=== PATIENT | male | born 1995 | race African-American/Black ===

== ENCOUNTER 2017-02-06 14:56 | Emergency (ER) | payer BC, OTHER ==
[~2017-02-06] VITALS: Ht 190.5 cm; Wt 86.2 kg
[2017-02-06] MEDS ORDERED: BACT800T5 PO (16:35)
[2017-02-06] MEDS ORDERED: LIDOCAINE 1% MDV 20ML VIAL As Ordered ONE (16:40)
[2017-02-06] MEDS ORDERED: AZITHROMYCIN 250 MG TAB PO ONE (16:45)
[2017-02-06] MEDS ORDERED: cefTRIAXone SOD 250 MG VIAL (J0696) IM ONE (16:45)
[2017-02-06 17:11] VITALS: BP 149/71
== END 2017-02-06 17:23 | disposition home or self-care (01) ==
LOC: M ED 15:41
DX: R30.0 Dysuria (principal); F90.9 Attention-deficit hyperactivity disorder, unspecified type; F17.200 Nicotine dependence, unspecified, uncomplicated
CPT/HCPCS: 81001; 87086; 87491; 87591; 96372; 99282; J0696

== ENCOUNTER 2018-11-29 22:25 | Emergency (ER) | payer OTHER, SELFPAY ==
[~2018-11-29] VITALS: Ht 190.5 cm; Wt 87.3 kg
[2018-11-29 22:25] VITALS: BP 144/68
[~2018-11-29 22:25] MED LIST: BACT800T5 PO
[2018-11-29] MEDS ORDERED: PRED20TA PO (23:50)
[2018-11-30] MEDS ORDERED: predniSONE 20 MG TAB PO ONE
== END 2018-11-30 00:07 | disposition home or self-care (01) ==
LOC: M ED 22:25
DX: R22.0 Localized swelling, mass and lump, head (principal); F90.9 Attention-deficit hyperactivity disorder, unspecified type

== ENCOUNTER 2018-12-18 18:42 | Emergency (ER) | payer MEDICAID, SELFPAY ==
[~2018-12-18] VITALS: Ht 190.5 cm; Wt 86.4 kg
[~2018-12-18 18:42] MED LIST changes: +PRED20TA PO
[2018-12-18] MEDS ORDERED: diphenhydrAMINE INJ 50MG/ML VIAL (J1200) IV STA (20:01)
[2018-12-18] MEDS ORDERED: METOCLOPRAMIDE INJ 10MG/2ML VIAL (J2765) IV ONE (20:15)
--- NOTE | 2018-12-18 20:25 | REPVR ---
EXAM: CT Head Without Contrast EXAM DATE/TIME: 12/18/2018 8:06 PM CLINICAL HISTORY: 23 years old, male; Pain; Headache; Headache not specified; Additional info: SCHNEIDER TECHNIQUE: Imaging protocol: Axial computed tomography images of the head/brain without contrast. Radiation optimization: All CT scans at this facility use at least one of these dose optimization techniques: automated exposure control; mA and/or kV adjustment per patient size (includes targeted exams where dose is matched to clinical indication); or iterative reconstruction. COMPARISON: No relevant prior studies available. FINDINGS: Brain: Normal. No hemorrhage. No significant white matter disease. No edema. Ventricles: Normal. No ventriculomegaly. Bones/joints: Unremarkable. No acute fracture. Sinuses: Visualized sinuses are unremarkable. No acute sinusitis. Mastoid air cells: Visualized mastoid air cells are unremarkable. No mastoid effusion. Soft tissues: Unremarkable. IMPRESSION: No acute intracranial abnormality. Electronically signed by: Jeramie Olivera On 12/18/2018 20:24:59 PM
[2018-12-18 20:37] LABS: HEMATOCRIT 50.6 % (42.0-52.0); HEMOGLOBIN 16.9 g/dl (13.5-17.5); MEAN CORPUSCULAR HEMOGLOBIN 29.2 pg (27.0-33.0); MEAN CORPUSCULAR HGB CONC 33.4 g/dl (32.0-36.5); MEAN CORPUSCULAR VOLUME 87.4 fl (80.0-96.0); PLATELET COUNT, AUTOMATED 240 10^3/uL (150-450); RED BLOOD COUNT 5.79 10^6/uL (4.30-6.10); WHITE BLOOD COUNT 4.9 10^3/uL (4.0-10.0)
[2018-12-18 21:03] LABS: BLOOD UREA NITROGEN 10 MG/DL (7-18); CALCIUM LEVEL 9.4 MG/DL (8.5-10.1); CARBON DIOXIDE LEVEL 31 MEQ/L (21-32); CHLORIDE LEVEL 104 MEQ/L (98-107); GLOMERULAR FILTRATION RATE > 60.0 (>60); GLUCOSE, FASTING 79 MG/DL (70-100); POTASSIUM SERUM 4.6 MEQ/L (3.5-5.1); SODIUM LEVEL 141 MEQ/L (136-145)
[2018-12-18] MEDS ORDERED: REGL10TA6 PO (21:09)
[2018-12-18 21:15] VITALS: BP 161/97
== END 2018-12-18 21:22 | disposition home or self-care (01) ==
LOC: M ED 18:42
DX: R51 Headache (principal); F90.9 Attention-deficit hyperactivity disorder, unspecified type; Z88.0 Allergy status to penicillin
CPT/HCPCS: 36415; 70450; 80048; 85027; 96374; 96375; 99284; J1200; J2765

== ENCOUNTER 2018-12-20 21:20 | Emergency (ER) | payer SELFPAY ==
[~2018-12-20] VITALS: Ht 190.5 cm; Wt 101.3 kg
[~2018-12-20 21:20] MED LIST changes: +REGL10TA6 PO
[2018-12-20] MEDS ORDERED: BUPIVACAINE/EPIN 0.5% 30 ML VIAL XX ONE (22:15)
--- NOTE | 2018-12-20 23:41 | REPVR ---
EXAM: CT Maxillofacial Without Contrast EXAM DATE/TIME: 12/20/2018 10:43 PM CLINICAL HISTORY: 23 years old, male; Pain; Jaw pain; Additional info: Mandible pain TECHNIQUE: Imaging protocol: Axial computed tomography images of the face without intravenous contrast. Coronal and sagittal reformatted images were created and reviewed. Radiation optimization: All CT scans at this facility use at least one of these dose optimization techniques: automated exposure control; mA and/or kV adjustment per patient size (includes targeted exams where dose is matched to clinical indication); or iterative reconstruction. COMPARISON: No relevant prior studies available. FINDINGS: Orbits: No acute intraorbital abnormality. Globes are unremarkable. Sinuses: Normal. No air-fluid levels. Bones/joints: Anterior and lateral subluxation of the left mandibular condyle with respect to the glenoid fossa in comparison to the right. Soft tissues: No significant facial soft tissue swelling. IMPRESSION: Anterior and lateral subluxation of the left mandibular condyle with respect to the glenoid fossa in comparison to the right. Electronically signed by: Jeramie Olivera On 12/20/2018 23:41:03 PM
[2018-12-21] MEDS ORDERED: MORPHINE 10 MG/ML 1ML VIAL (J2270) IM ONE (00:15)
[2018-12-21] MEDS ORDERED: PROPOFOL 1,000 MG/100 ML VIAL As Ordered ONE (00:44)
[2018-12-21] MEDS ORDERED: PROPOFOL 200 MG/20 ML VIAL IV ONE ×2 (00:51→00:53)
[2018-12-21 01:03] VITALS: O2SAT 100
[2018-12-21 01:50] VITALS: BP 182/87
--- NOTE | 2018-12-21 08:40 | REP ---
TMJ is series: Two views. History: Post reduction. CT imaging showed subluxation or dislocation of the left temporomandibular joint. Findings: Portably obtained lateral views are presented. The patient was apparently conscious according to the technologist and unable to participate in positioning. Right temporomandibular joint appears normally aligned. On the left there is improvement although some persistent diastases is seen. These views are less than optimal. Consider repeat CT scanning. Electronically Signed by Sage Hoskins MD 12/21/2018 08:31 A
== END 2018-12-21 01:59 | disposition home or self-care (01) ==
LOC: M ED 21:20
DX: S03.02XA Dislocation of jaw, left side, initial encounter (principal); X58.XXXA Exposure to other specified factors, initial encounter; Y92.9 Unspecified place or not applicable; Y93.9 Activity, unspecified; Y99.9 Unspecified external cause status; B15.9 Hepatitis A without hepatic coma; Z88.0 Allergy status to penicillin
CPT/HCPCS: 21480; 70330; 70486; 96374; 99152; 99153; 99285; J2270

== ENCOUNTER 2019-07-04 20:14 | Emergency (ER) | payer OTHER, SELFPAY ==
[~2019-07-04] VITALS: Ht 190.5 cm; Wt 103.5 kg
[2019-07-04 20:16] VITALS: BP 141/76
[2019-07-04] MEDS ORDERED: predniSONE 20 MG TAB PO ONE (21:45)
[2019-07-04] MEDS ORDERED: PRED20TA PO (21:47)
== END 2019-07-04 21:58 | disposition home or self-care (01) ==
LOC: M ED 20:14
DX: R21 Rash and other nonspecific skin eruption (principal); B88.9 Infestation, unspecified; Z88.0 Allergy status to penicillin

== ENCOUNTER 2019-07-23 01:54 | Emergency (ER) | payer OTHER ==
[~2019-07-23] VITALS: Ht 190.5 cm; Wt 90.9 kg
[2019-07-23 04:38] VITALS: BP 147/82
== END 2019-07-23 04:37 | disposition home or self-care (01) ==
LOC: M ED 01:54
DX: L98.8 Other specified disorders of the skin and subcutaneous tissue (principal); Z88.0 Allergy status to penicillin

== ENCOUNTER 2020-01-04 13:58 | Emergency (ER) | payer OTHER ==
[~2020-01-04] VITALS: Ht 190.5 cm; Wt 100.9 kg
[2020-01-04 16:16] LABS: CHLAMYDIA DNA AMPLIFICATION POSITIVE (NEGATIVE); GC DNA AMPLIFICATION NEGATIVE (NEGATIVE)
[2020-01-04 16:42] VITALS: BP 137/67
[2020-01-04] MEDS ORDERED: AZITHROMYCIN 250MG TABLET PO ONE (16:45)
== END 2020-01-04 16:48 | disposition home or self-care (01) ==
LOC: M ED 13:58
DX: A74.9 Chlamydial infection, unspecified (principal); R30.0 Dysuria; F90.9 Attention-deficit hyperactivity disorder, unspecified type; F17.210 Nicotine dependence, cigarettes, uncomplicated; Z88.0 Allergy status to penicillin; Z88.1 Allergy status to other antibiotic agents

== ENCOUNTER 2020-02-15 01:53 | Emergency (ER) | payer OTHER ==
[2020-02-15 02:25] VITALS: BP 168/77
--- NOTE | 2020-02-15 03:25 | REP ---
Clinical: Chest pain and congestion . Comparison: None . Technique: PA and lateral. Findings: The mediastinum and cardiac silhouette are normal. The lung hernandez are clear and without acute consolidation, effusion, or pneumothorax. The skeletal structures are intact and normal. Impression: 1. No acute cardiopulmonary process. Electronically Signed by Dwayne Robbins MD 02/15/2020 03:17 A
[2020-02-15 03:43] LABS: BASO % 0.5 % (0.0-1.0); EOS # 0.2 10^3/uL (0.0-0.5); EOS % 2.7 % (0.0-3.0); HEMATOCRIT 45.4 % (42.0-52.0); LYMPH # 1.6 10^3/uL (1.5-5.0); LYMPH % 23.5 % (24.0-44.0); MEAN CORPUSCULAR HEMOGLOBIN 28.7 pg (27.0-33.0); MEAN CORPUSCULAR VOLUME 86.8 fl (80.0-96.0); MONO # 0.8 10^3/uL (0.0-0.8); MONO % 11.3 % (0.0-5.0); NEUTROPHILS # 4.1 10^3/uL (1.5-8.5); NEUTROPHILS % 61.8 % (36.0-66.0); PLATELET COUNT, AUTOMATED 259 10^3/uL (150-450); RED BLOOD COUNT 5.23 10^6/uL (4.30-6.10); WHITE BLOOD COUNT 6.6 10^3/uL (4.0-10.0)
[2020-02-15 03:51] LABS: BLOOD UREA NITROGEN 12 MG/DL (7-18); CALCIUM LEVEL 9.1 MG/DL (8.5-10.1); CARBON DIOXIDE LEVEL 31 MEQ/L (21-32); CHLORIDE LEVEL 104 MEQ/L (98-107); CREATININE FOR GFR 1.06 MG/DL (0.70-1.30); GLOMERULAR FILTRATION RATE > 60.0 (>60); GLUCOSE, FASTING 94 MG/DL (70-100); POTASSIUM SERUM 3.9 MEQ/L (3.5-5.1); SODIUM LEVEL 139 MEQ/L (136-145)
--- NOTE | 2020-02-15 07:17 | ECGEPIP ---
[facility] - ED Test Date: 2020-02-15 Pat Name: ENDY GONZALEZ Department: Room: - Gender: Male Set Up Mechanic: MARGY : 1995 Requested By: OPAL Farrar Order Number: [id number] Reading MD: Alma Ambrocio Measurements Intervals Letcher Rate: 83 P: 17 MN: 145 QRS: 88 QRSD: 106 T: 12 QT: 356 QTc: 420 Interpretive Statements SINUS RHYTHM EARLY REPOLARIZATION, PROBABLE CLINICAL CORRELATION NO PRIOR Electronically Signed on 02-15-2020 7:17:22 EDT by Alma Ambrocio
== END 2020-02-15 04:13 | disposition home or self-care (01) ==
LOC: M ED 01:53
DX: R09.89 Other specified symptoms and signs involving the circulatory and respiratory systems (principal); R68.2 Dry mouth, unspecified; F12.10 Cannabis abuse, uncomplicated; Z88.0 Allergy status to penicillin

== ENCOUNTER 2023-10-29 23:10 | Emergency (ER) | payer OTHER, SELFPAY ==
[~2023-10-29] VITALS: Ht 190.5 cm; Wt 118.0 kg
[2023-10-30] MEDS ORDERED: KETOROLAC TROMETHAMINE 10 MG TAB PO ONE (00:50)
[2023-10-30] MEDS ORDERED: CLINDAMYCIN 150MG CAPSULE PO ONE (00:50)
[2023-10-30] MEDS ORDERED: ANBE20GE TOP (00:53)
[2023-10-30] MEDS ORDERED: NAPR-837 PO (00:53)
[2023-10-30] MEDS ORDERED: CLEO300C2 PO (00:53)
[2023-10-30 01:05] VITALS: BP 158/79; TEMP 97; O2SAT 100
== END 2023-10-30 01:06 | disposition home or self-care (01) ==
LOC: M ED 23:10
DX: K02.9 Dental caries, unspecified (principal); F12.10 Cannabis abuse, uncomplicated; Z88.1 Allergy status to other antibiotic agents; Z88.0 Allergy status to penicillin; Z79.899 Other long term (current) drug therapy; Z79.2 Long term (current) use of antibiotics

== ENCOUNTER 2024-12-10 06:21 | Emergency (ER) | payer OTHER, SELFPAY ==
[~2024-12-10] VITALS: Ht 190.5 cm; Wt 116.9 kg
[~2024-12-10 06:21] MED LIST changes: +ANBE20GE TOP; +CLEO300C2 PO; +NAPR-837 PO
[2024-12-10] MEDS: ACETAMINOPHEN 500 MG TAB PO ONE (07:54)
[2024-12-10 08:57] VITALS: BP 135/75; TEMP 98.1; O2SAT 100
== END 2024-12-10 09:11 | disposition home or self-care (01) ==
LOC: M ED 06:21
DX: R50.9 Fever, unspecified (principal); B34.8 Other viral infections of unspecified site; Z79.899 Other long term (current) drug therapy; Z88.0 Allergy status to penicillin

== ENCOUNTER 2025-04-14 13:08 | Emergency (ER) | payer OTHER ==
[~2025-04-14] VITALS: Ht 190.5 cm; Wt 116.5 kg
[2025-04-14] MEDS: KETOROLAC 30 MG/ML 1 ML VIAL IV ONE (17:19)
[2025-04-14] MEDS: BOOSTRIX VACCINE (TETANUS/DIPHTH/ACEL. PERTUSSIS) 0.5 ML SYR IM.IMMUN ONE (17:20)
[2025-04-14 17:50] LABS: BASO # 0.0 10^3/uL (0.0-0.2); BASO % 0.3 % (0.0-1.0); EOS # 0.3 10^3/uL (0.0-0.5); EOS % 4.0 % (0.0-3.0); LYMPH # 2.4 10^3/uL (1.5-5.0); LYMPH % 33.7 % (24.0-44.0); MONO # 0.9 10^3/uL (0.0-0.8); MONO % 12.2 % (2.0-8.0); NEUTROPHILS # 3.6 10^3/uL (1.5-8.5); NEUTROPHILS % 49.7 % (36.0-66.0); PLATELET COUNT, AUTOMATED 261 10^3/uL (150-450)
[2025-04-14 18:02] LABS: ERYTHROCYTE SEDIMENTATION RATE 37 mm/hr (0-15)
[2025-04-14 18:05] VITALS: BP 155/89; TEMP 97.8; O2SAT 99
[2025-04-14 18:06] LABS: C REACTIVE PROTEIN QUANTITATIV 1.42 MG/DL (<1.0); CALCIUM LEVEL 9.6 MG/DL (8.5-10.1); CARBON DIOXIDE LEVEL 31 MMOL/L (20-31); CHLORIDE LEVEL 103 MMOL/L (98-107); CREATININE FOR GFR 1.02 MG/DL (0.70-1.30); GLOMERULAR FILTRATION RATE > 90.0 (>60); POTASSIUM SERUM 4.3 MMOL/L (3.5-5.1); SODIUM LEVEL 142 MMOL/L (136-145)
[2025-04-14] MEDS ORDERED: DOXY-441 PO (18:24)
== END 2025-04-14 18:37 | disposition home or self-care (01) ==
LOC: M ED 13:08
DX: L03.115 Cellulitis of right lower limb (principal); Z88.0 Allergy status to penicillin; Z88.1 Allergy status to other antibiotic agents; Z79.2 Long term (current) use of antibiotics; Z23 Encounter for immunization
CPT/HCPCS: 80048; 85025; 85652; 86140; 87040; 90471; 90715; 96374; 99284; J1885